=== PATIENT | male | born 1965 | race Caucasian/White ===

== ENCOUNTER 2021-04-25 12:59 | Inpatient (IN) ==
[2021-04-25] MEDS ORDERED: Isovue-370 500 ML BOTTLE IVP ONE (13:47)
[2021-04-25 14:02] LABS: INR 1.3
[2021-04-25 14:05] LABS: Activated Partial Thrombo Time 27.1 Seconds (26.0-36.0); Hematocrit 36.7 % (37.5-50.1); Hemoglobin 13.1 g/dL (12.9-16.9); Mean Corpuscular HGB Conc 35.7 g/dL (31.6-35.5); Mean Corpuscular Hemoglobin 36.4 pg (28.0-33.3); Mean Corpuscular Volume 101.9 fL (83.0-100.0); Platelet Count 250 K/mcL (140-400); Red Cell Distribution Width 11.9 % (11.5-14.5); White Blood Count 13.3 K/mcL (4.3-11.1)
[2021-04-25 14:14] LABS: Influenza A PCR Negative (Negative); Influenza B PCR Negative (Negative); Resp. Syncytial Virus PCR Negative (Negative)
[2021-04-25 14:17] LABS: SARS-CoV-2 by PCR (In House) Positive (Negative)
[2021-04-25] MEDS ORDERED: cefTRIAXone 1,000 MG in 0.9 % Sodium Chloride Mini Bag 100 ML IVPB ONE (14:24)
[2021-04-25 14:40] LABS: Lymphocytes # 0.3 K/mcL (0.6-4.6); Platelet Estimate Normal (Normal); Toxic Granulation Present (Not Present)
[2021-04-25 15:02] LABS: Alanine Aminotransferase 42 Units/L (7-52); Albumin 2.6 g/dL (3.5-5.7); Albumin/Globulin Ratio 0.7 (1.1-2.2); Alkaline Phosphatase 79 Units/L (34-104); Aspartate Amino Transferase 116 Units/L (13-39); BUN/Creatinine Ratio 40 (6-26); Blood Urea Nitrogen 62 mg/dL (6-20); Calcium 8.3 mg/dL (8.6-10.3); Carbon Dioxide 21 mEq/L (23-29); Chloride 92 mEq/L (98-107); Globulin 3.8 g/dL (2.4-3.5); Glucose 139 mg/dL (70-105); Osmolality,Calculated 288 (280-300); Potassium 3.7 mEq/L (3.5-5.1); Sodium 129 mEq/L (136-145); Total Protein 6.4 g/dL (6.4-8.9); Troponin I < 0.03 ng/mL (< 0.04); eGFR For African Americans 57 (> 60); eGFR For Non-African Americans 47 (> 60)
[2021-04-25] MEDS ORDERED: *HR* HYDROcodone/Acet 7.5/325 mg TABLET PO PRN (17:26)
[2021-04-25] MEDS ORDERED: Nicotine 2 MG GUM BC PRN (17:26)
[2021-04-25] MEDS ORDERED: Acetaminophen 325 MG TABLET PO PRN (17:27)
[2021-04-25] MEDS ORDERED: Ondansetron 4 MG/2 ML VIAL IVP PRN (17:27)
[2021-04-25] MEDS ORDERED: Naloxone 0.4 MG/ML INJ IVP PRN (17:27)
[2021-04-25] MEDS ORDERED: Melatonin 3 MG TABLET PO PRN (17:27)
[2021-04-25] MEDS ORDERED: 0.9 % Sodium Chloride 1,000 ML IVC SCH (17:30)
[2021-04-25] MEDS ORDERED: 0.9 % Sodium Chloride 1,000 ML IVC ONE (18:00)
[2021-04-25] MEDS: Dexamethasone Sodium Phos/PF 10 MG/ML VIAL IVP SCH (18:56)
[2021-04-25] MEDS: Nicotine 21 MG PATCH.TD24 TD SCH (18:56)
[2021-04-25] MEDS: Gabapentin 300 MG CAPSULE PO SCH (22:04)
[2021-04-26 05:01] LABS: Acinetobacter baumannii by PCR Not Detected (Not Detect); Candida albicans by PCR Not Detected (Not Detect); Candida glabrata by PCR Not Detected (Not Detect); Candida krusei by PCR Not Detected (Not Detect); Candida parapsilosis by PCR Not Detected (Not Detect); Candida tropicalis by PCR Not Detected (Not Detect); Enterobacter cloacae Cmplx PCR Not Detected (Not Detect); Enterobacteriaceae by PCR Not Detected (Not Detect); Enterococcus by PCR Not Detected (Not Detect); Escherichia coli by PCR Not Detected (Not Detect); Klebsiella oxytoca by PCR Not Detected (Not Detect); Klebsiella pneumoniae by PCR Not Detected (Not Detect); Proteus by PCR Not Detected (Not Detect); Pseudomonas aeruginosa by PCR Not Detected (Not Detect); Serratia marcescens by PCR Not Detected (Not Detect); Staphylococcus aureus by PCR Not Detected (Not Detect); Staphylococcus by PCR Not Detected (Not Detect); Streptococcus agalactiae(B)PCR Not Detected (Not Detect); Streptococcus by PCR Not Detected (Not Detect); Streptococcus pneumoniae PCR DETECTED (Not Detect); Streptococcus pyogenes (A) PCR Not Detected (Not Detect)
[2021-04-26 05:48] LABS: Hematocrit 34.4 % (37.5-50.1); Mean Corpuscular HGB Conc 34.9 g/dL (31.6-35.5); Mean Corpuscular Hemoglobin 35.9 pg (28.0-33.3); Mean Platelet Volume 10.8 fL (9.4-12.4); Platelet Count 241 K/mcL (140-400); Red Blood Count 3.34 M/mcL (4.19-5.50); Red Cell Distribution Width 12.3 % (11.5-14.5); White Blood Count 14.6 K/mcL (4.3-11.1)
[2021-04-26 05:59] LABS: BUN/Creatinine Ratio 53 (6-26); Blood Urea Nitrogen 71 mg/dL (6-20); Calcium 8.4 mg/dL (8.6-10.3); Carbon Dioxide 23 mEq/L (23-29); Chloride 97 mEq/L (98-107); Glucose 125 mg/dL (70-105); Magnesium 2.6 mg/dL (1.6-2.6); Osmolality,Calculated 296 (280-300); Phosphorous 4.9 mg/dL (2.7-4.5); Potassium 4.5 mEq/L (3.5-5.1); Sodium 132 mEq/L (136-145); eGFR For African Americans > 60 (> 60); eGFR For Non-African Americans 55 (> 60)
[2021-04-26] MEDS: *HR* Enoxaparin 40 MG/0.4 ML SYRINGE SQ SCH (08:20)
[2021-04-26] MEDS: Dexamethasone Sodium Phos/PF 10 MG/ML VIAL IVP SCH (08:20)
[2021-04-26] MEDS: Nicotine 21 MG PATCH.TD24 TD SCH (08:20)
[2021-04-26] MEDS: Aspirin 81 MG TAB.CHEW PO SCH (08:21)
[2021-04-26] MEDS: Gabapentin 300 MG CAPSULE PO SCH ×3 (08:21→20:21)
[2021-04-26] MEDS ORDERED: cefTRIAXone 1,000 MG in Water for inj. (sterile) 10 ML IVP SCH (09:00)
[2021-04-26] MEDS ORDERED: cefTRIAXone 1,000 MG in Water for inj. (sterile) 10 ML IVP ONE (13:05)
[2021-04-26] MEDS ORDERED: 0.9 % Sodium Chloride 500 ML IVC ONE (13:06)
[2021-04-26] MEDS ORDERED: 0.9 % Sodium Chloride 1,000 ML IVC ONE (13:09)
[2021-04-27] MEDS: *HR* Enoxaparin 40 MG/0.4 ML SYRINGE SQ SCH (05:06)
[2021-04-27 06:08] LABS: Hematocrit 32.9 % (37.5-50.1); Hemoglobin 11.3 g/dL (12.9-16.9); Mean Corpuscular HGB Conc 34.3 g/dL (31.6-35.5); Mean Corpuscular Hemoglobin 35.8 pg (28.0-33.3); Mean Corpuscular Volume 104.1 fL (83.0-100.0); Mean Platelet Volume 10.8 fL (9.4-12.4); Platelet Count 270 K/mcL (140-400); Red Blood Count 3.16 M/mcL (4.19-5.50); Red Cell Distribution Width 12.7 % (11.5-14.5); White Blood Count 14.8 K/mcL (4.3-11.1)
[2021-04-27 06:21] LABS: BUN/Creatinine Ratio 70 (6-26); Blood Urea Nitrogen 80 mg/dL (6-20); Calcium 8.2 mg/dL (8.6-10.3); Carbon Dioxide 23 mEq/L (23-29); Chloride 105 mEq/L (98-107); Glucose 115 mg/dL (70-105); Magnesium 2.8 mg/dL (1.6-2.6); Osmolality,Calculated 309 (280-300); Potassium 4.9 mEq/L (3.5-5.1); Sodium 137 mEq/L (136-145); eGFR For African Americans > 60 (> 60); eGFR For Non-African Americans > 60 (> 60)
[2021-04-27] MEDS: Nicotine 21 MG PATCH.TD24 TD SCH (08:12)
[2021-04-27] MEDS: Aspirin 81 MG TAB.CHEW PO SCH (08:13)
[2021-04-27] MEDS: Gabapentin 300 MG CAPSULE PO SCH ×3 (08:13→21:40)
[2021-04-27] MEDS: cefTRIAXone 2,000 MG in 0.9 % Sodium Chloride Mini Bag 100 ML IVPB SCH (08:14)
[2021-04-28 03:03] VITALS: PULSE 91; TEMP 97.9
[2021-04-28 05:59] LABS: Hematocrit 36.4 % (37.5-50.1); Mean Corpuscular Hemoglobin 35.4 pg (28.0-33.3); Mean Corpuscular Volume 107.4 fL (83.0-100.0); Mean Platelet Volume 10.2 fL (9.4-12.4); Platelet Count 285 K/mcL (140-400); Red Blood Count 3.39 M/mcL (4.19-5.50); Red Cell Distribution Width 12.9 % (11.5-14.5); White Blood Count 8.4 K/mcL (4.3-11.1)
[2021-04-28] MEDS: *HR* Enoxaparin 40 MG/0.4 ML SYRINGE SQ SCH (06:10)
[2021-04-28 06:13] LABS: BUN/Creatinine Ratio 60 (6-26); Blood Urea Nitrogen 70 mg/dL (6-20); Calcium 8.2 mg/dL (8.6-10.3); Carbon Dioxide 27 mEq/L (23-29); Chloride 106 mEq/L (98-107); Glucose 78 mg/dL (70-105); Magnesium 2.3 mg/dL (1.6-2.6); Osmolality,Calculated 309 (280-300); Phosphorous 4.5 mg/dL (2.7-4.5); Potassium 4.1 mEq/L (3.5-5.1); Sodium 140 mEq/L (136-145); eGFR For African Americans > 60 (> 60); eGFR For Non-African Americans > 60 (> 60)
[2021-04-28 07:13] VITALS: BP 177/86; O2SAT 96
[2021-04-28] MEDS: Aspirin 81 MG TAB.CHEW PO SCH (08:23)
[2021-04-28] MEDS: Gabapentin 300 MG CAPSULE PO SCH (08:23)
[2021-04-28] MEDS: cefTRIAXone 2,000 MG in 0.9 % Sodium Chloride Mini Bag 100 ML IVPB SCH (08:24)
[2021-04-28] MEDS: Nicotine 21 MG PATCH.TD24 TD SCH (08:24)
== END 2021-04-28 12:11 | disposition home or self-care (01) | DRG 720 ==
LOC: 3NENU 12:59 → EMEROOARM 12:59 → SUATTDRO 18:16 → 3NENU 18:39
PROVIDERS: ADMIT Internal Medicine; ATTEND Internal Medicine

== ENCOUNTER 2021-04-28 19:23 | Observation (INO) ==
[2021-04-28 20:20] LABS: Basophils % 0.5 %; Hematocrit 36.9 % (37.5-50.1); Hemoglobin 12.8 g/dL (12.9-16.9); Immature Granulocytes % 1.9 % (0-4); Lymphocytes # 0.7 K/mcL (0.6-4.6); Lymphocytes % 10.6 %; Mean Corpuscular HGB Conc 34.7 g/dL (31.6-35.5); Mean Corpuscular Hemoglobin 36.3 pg (28.0-33.3); Mean Corpuscular Volume 104.5 fL (83.0-100.0); Mean Platelet Volume 10.2 fL (9.4-12.4); Monocytes # 0.2 K/mcL (0.0-1.3); Monocytes % 2.5 %; Neutrophils # 5.4 K/mcL (1.6-8.9); Platelet Count 298 K/mcL (140-400); Red Blood Count 3.53 M/mcL (4.19-5.50); Red Cell Distribution Width 12.9 % (11.5-14.5); Segmented Neutrophils % 84.5 %; White Blood Count 6.4 K/mcL (4.3-11.1)
[2021-04-28 20:31] LABS: INR 1.2; Prothrombin Time 13.4 Seconds (9.4-12.1)
[2021-04-28 20:33] LABS: Activated Partial Thrombo Time 35.2 Seconds (26.0-36.0)
[2021-04-28 20:39] LABS: Alanine Aminotransferase 62 Units/L (7-52); Albumin 2.6 g/dL (3.5-5.7); Albumin/Globulin Ratio 0.7 (1.1-2.2); Alkaline Phosphatase 139 Units/L (34-104); Aspartate Amino Transferase 103 Units/L (13-39); BUN/Creatinine Ratio 55 (6-26); Bilirubin,Direct 0.2 mg/dL (0.0-0.2); Bilirubin,Indirect 0.2 mg/dL (0.0-1.0); Bilirubin,Total 0.4 mg/dL (0.3-1.0); Blood Urea Nitrogen 44 mg/dL (6-20); Calcium 8.2 mg/dL (8.6-10.3); Carbon Dioxide 26 mEq/L (23-29); Chloride 101 mEq/L (98-107); Globulin 3.8 g/dL (2.4-3.5); Glucose 114 mg/dL (70-105); Magnesium 1.7 mg/dL (1.6-2.6); Osmolality,Calculated 294 (280-300); Phosphorous 4.2 mg/dL (2.7-4.5); Potassium 3.7 mEq/L (3.5-5.1); Sodium 136 mEq/L (136-145); Total Protein 6.4 g/dL (6.4-8.9); Troponin I 0.03 ng/mL (< 0.04); eGFR For African Americans > 60 (> 60); eGFR For Non-African Americans > 60 (> 60)
[2021-04-28 20:56] LABS: Large Platelets Present (Not Present)
[2021-04-28] MEDS ORDERED: 0.9 % Sodium Chloride 1,000 ML IV ONE (21:44)
[2021-04-29 01:08] LABS: Bilirubin,Urine Negative (Negative); Blood,Urine Negative (Negative); Clarity,Urine Clear (Clear); Color,Urine Yellow (Yellow); Glucose,Urine (UA) Normal (Normal); Ketones,Urine Negative (Negative); Leukocyte Esterase,Urine Negative (Negative); Mucus,Urine Few per lpf (None-Few); Nitrite,Urine Negative (Negative); Protein,Urine 30 mg/dL (Neg-Trace); RBC,Urine 0-3 per hpf (0-3); Specific Gravity,Urine 1.025 (1.010-1.025); Urobilinogen,Urine Normal (Normal); WBC,Urine 0-3 per hpf (0-3)
[2021-04-29] MEDS ORDERED: Isovue-370 500 ML BOTTLE IVP ONE (02:36)
[2021-04-29] MEDS ORDERED: Acetaminophen 325 MG TABLET PO PRN (05:36)
[2021-04-29] MEDS ORDERED: Naloxone 0.4 MG/ML INJ IVP PRN (05:36)
[2021-04-29] MEDS ORDERED: Ondansetron 4 MG/2 ML VIAL IVP PRN (05:36)
[2021-04-29] MEDS ORDERED: Ipratropium/Albuterol Neb 3 ML IH PRN (05:39)
[2021-04-29] MEDS ORDERED: *HR* Heparin 5,000 UNIT/ML VIAL SQ SCH (06:00)
[2021-04-29] MEDS ORDERED: Azithromycin 500 MG in D5% in Water 250 ML IVPB SCH (06:00)
[2021-04-29 08:24] LABS: Hemoglobin 11.9 g/dL (12.9-16.9); Red Cell Distribution Width 13.2 % (11.5-14.5)
[2021-04-29 08:26] LABS: Basophils # 0.1 K/mcL (0.0-0.2); Basophils % 1.1 %; Eosinophils % 0.7 %; Hematocrit 35.8 % (37.5-50.1); Immature Granulocytes % 3.9 % (0-4); Immature Platelets 3.6 % (1.1-6.1); Lymphocytes # 0.5 K/mcL (0.6-4.6); Lymphocytes % 11.8 %; Mean Corpuscular HGB Conc 33.2 g/dL (31.6-35.5); Mean Corpuscular Hemoglobin 35.6 pg (28.0-33.3); Mean Corpuscular Volume 107.2 fL (83.0-100.0); Mean Platelet Volume 10.3 fL (9.4-12.4); Monocytes # 0.1 K/mcL (0.0-1.3); Monocytes % 3.2 %; Neutrophils # 3.5 K/mcL (1.6-8.9); Nucleated Red Blood Cells 0.5 /100 WBC (0); Platelet Count 228 K/mcL (140-400); Red Blood Count 3.34 M/mcL (4.19-5.50); Segmented Neutrophils % 79.3 %; White Blood Count 4.4 K/mcL (4.3-11.1)
[2021-04-29] MEDS ORDERED: cefTRIAXone 1,000 MG in Water for inj. (sterile) 10 ML IVP SCH (09:00)
[2021-04-29] MEDS: Cefdinir 300 MG CAPSULE PO SCH ×2 (12:25→20:04)
[2021-04-29] MEDS ORDERED: Nicotine 2 MG GUM BC PRN (15:48)
[2021-04-29] MEDS: Melatonin 3 MG TABLET PO PRN (20:04)
[2021-04-29 22:44] LABS: Sodium 139 mEq/L (136-145)
[2021-04-29 22:45] LABS: BUN/Creatinine Ratio 45 (6-26); Blood Urea Nitrogen 28 mg/dL (6-20); Carbon Dioxide 28 mEq/L (23-29); Chloride 106 mEq/L (98-107); Glucose 117 mg/dL (70-105); Osmolality,Calculated 295 (280-300); Potassium 4.7 mEq/L (3.5-5.1); eGFR For African Americans > 60 (> 60); eGFR For Non-African Americans > 60 (> 60)
[2021-04-30] MEDS: *HR* Enoxaparin 40 MG/0.4 ML SYRINGE SQ SCH (05:32)
[2021-04-30] MEDS: amLODIPine 5 MG TABLET PO SCH (08:15)
[2021-04-30] MEDS: atenoloL 50 MG TABLET PO SCH (08:16)
[2021-04-30] MEDS: Aspirin 81 MG TAB.CHEW PO SCH (08:16)
[2021-04-30] MEDS: Nicotine 21 MG PATCH.TD24 TD SCH (08:16)
[2021-04-30] MEDS: lisinopriL 20 MG TABLET PO SCH (08:16)
[2021-04-30] MEDS: Cefdinir 300 MG CAPSULE PO SCH ×2 (08:16→19:54)
[2021-05-01 02:53] LABS: Basophils % 0.2 %; Eosinophils % 0.2 %; Hematocrit 34.5 % (37.5-50.1); Hemoglobin 11.6 g/dL (12.9-16.9); Immature Granulocytes % 1.4 % (0-4); Lymphocytes # 0.7 K/mcL (0.6-4.6); Lymphocytes % 16.4 %; Mean Corpuscular HGB Conc 33.6 g/dL (31.6-35.5); Mean Corpuscular Volume 107.1 fL (83.0-100.0); Mean Platelet Volume 10.3 fL (9.4-12.4); Monocytes # 0.1 K/mcL (0.0-1.3); Monocytes % 3.3 %; Neutrophils # 3.4 K/mcL (1.6-8.9); Platelet Count 239 K/mcL (140-400); Red Blood Count 3.22 M/mcL (4.19-5.50); Red Cell Distribution Width 12.4 % (11.5-14.5); Segmented Neutrophils % 78.5 %; White Blood Count 4.3 K/mcL (4.3-11.1)
[2021-05-01 03:13] LABS: Alanine Aminotransferase 32 Units/L (7-52); Albumin 2.1 g/dL (3.5-5.7); Albumin/Globulin Ratio 0.6 (1.1-2.2); Alkaline Phosphatase 71 Units/L (34-104); Aspartate Amino Transferase 45 Units/L (13-39); BUN/Creatinine Ratio 31 (6-26); Bilirubin,Total 0.4 mg/dL (0.3-1.0); Blood Urea Nitrogen 20 mg/dL (6-20); C-Reactive Protein 23 mg/L (Less than 10); Calcium 7.6 mg/dL (8.6-10.3); Carbon Dioxide 27 mEq/L (23-29); Chloride 103 mEq/L (98-107); Globulin 3.7 g/dL (2.4-3.5); Glucose 76 mg/dL (70-105); Osmolality,Calculated 283 (280-300); Potassium 3.9 mEq/L (3.5-5.1); Sodium 136 mEq/L (136-145); Total Protein 5.8 g/dL (6.4-8.9); eGFR For African Americans > 60 (> 60); eGFR For Non-African Americans > 60 (> 60)
[2021-05-01] MEDS: *HR* Enoxaparin 40 MG/0.4 ML SYRINGE SQ SCH (04:26)
[2021-05-01] MEDS: Aspirin 81 MG TAB.CHEW PO SCH (08:54)
[2021-05-01] MEDS: lisinopriL 20 MG TABLET PO SCH (08:55)
[2021-05-01] MEDS: atenoloL 50 MG TABLET PO SCH (08:55)
[2021-05-01] MEDS: Nicotine 21 MG PATCH.TD24 TD SCH (08:55)
[2021-05-01] MEDS: Cefdinir 300 MG CAPSULE PO SCH ×2 (08:55→23:12)
[2021-05-01] MEDS: amLODIPine 5 MG TABLET PO SCH (08:55)
[2021-05-02] MEDS: *HR* Enoxaparin 40 MG/0.4 ML SYRINGE SQ SCH (06:01)
[2021-05-02] MEDS: Nicotine 21 MG PATCH.TD24 TD SCH (10:56)
[2021-05-02] MEDS: amLODIPine 5 MG TABLET PO SCH (10:57)
[2021-05-02] MEDS: atenoloL 50 MG TABLET PO SCH (10:57)
[2021-05-02] MEDS: Aspirin 81 MG TAB.CHEW PO SCH (10:57)
[2021-05-02] MEDS: lisinopriL 20 MG TABLET PO SCH (10:57)
[2021-05-02] MEDS: Cefdinir 300 MG CAPSULE PO SCH (20:59)
[2021-05-02] MEDS: Melatonin 3 MG TABLET PO PRN (21:46)
[2021-05-03] MEDS: Acetaminophen 325 MG TABLET PO SCH ×4 (04:49→16:55)
[2021-05-03] MEDS: *HR* Enoxaparin 40 MG/0.4 ML SYRINGE SQ SCH (05:08)
[2021-05-03 06:58] LABS: Basophils % 0.2 %; Eosinophils % 0.5 %; Hematocrit 34.6 % (37.5-50.1); Hemoglobin 11.6 g/dL (12.9-16.9); Immature Granulocytes % 0.5 % (0-4); Lymphocytes # 1.1 K/mcL (0.6-4.6); Lymphocytes % 18.7 %; Mean Corpuscular HGB Conc 33.5 g/dL (31.6-35.5); Mean Corpuscular Volume 107.5 fL (83.0-100.0); Mean Platelet Volume 10.8 fL (9.4-12.4); Monocytes # 0.2 K/mcL (0.0-1.3); Monocytes % 3.7 %; Neutrophils # 4.3 K/mcL (1.6-8.9); Platelet Count 236 K/mcL (140-400); Red Blood Count 3.22 M/mcL (4.19-5.50); Red Cell Distribution Width 12.6 % (11.5-14.5); Segmented Neutrophils % 76.4 %; White Blood Count 5.7 K/mcL (4.3-11.1)
[2021-05-03 07:13] LABS: BUN/Creatinine Ratio 30 (6-26); Blood Urea Nitrogen 20 mg/dL (6-20); Calcium 7.8 mg/dL (8.6-10.3); Carbon Dioxide 28 mEq/L (23-29); Chloride 104 mEq/L (98-107); Glucose 105 mg/dL (70-105); Osmolality,Calculated 287 (280-300); Potassium 3.7 mEq/L (3.5-5.1); Sodium 137 mEq/L (136-145); eGFR For African Americans > 60 (> 60); eGFR For Non-African Americans > 60 (> 60)
[2021-05-03] MEDS: Cefdinir 300 MG CAPSULE PO SCH ×3 (07:36→20:35)
[2021-05-03] MEDS: Nicotine 21 MG PATCH.TD24 TD SCH (08:29)
[2021-05-03] MEDS: atenoloL 50 MG TABLET PO SCH (08:29)
[2021-05-03] MEDS: Aspirin 81 MG TAB.CHEW PO SCH (08:29)
[2021-05-03] MEDS: amLODIPine 5 MG TABLET PO SCH (08:29)
[2021-05-03] MEDS: lisinopriL 20 MG TABLET PO SCH (08:29)
[2021-05-04] MEDS: Melatonin 3 MG TABLET PO PRN ×2 (00:28→18:52)
[2021-05-04] MEDS: Acetaminophen 325 MG TABLET PO SCH ×4 (00:28→18:04)
[2021-05-04] MEDS: *HR* Enoxaparin 40 MG/0.4 ML SYRINGE SQ SCH (05:13)
[2021-05-04] MEDS: atenoloL 50 MG TABLET PO SCH (08:25)
[2021-05-04] MEDS: Aspirin 81 MG TAB.CHEW PO SCH (08:25)
[2021-05-04] MEDS: amLODIPine 5 MG TABLET PO SCH (08:25)
[2021-05-04] MEDS: Cefdinir 300 MG CAPSULE PO SCH ×2 (08:25→20:17)
[2021-05-04] MEDS: Nicotine 21 MG PATCH.TD24 TD SCH (08:26)
[2021-05-04] MEDS: lisinopriL 20 MG TABLET PO SCH (08:26)
[2021-05-05] MEDS: *HR* Enoxaparin 40 MG/0.4 ML SYRINGE SQ SCH (05:33)
[2021-05-05] MEDS: Acetaminophen 325 MG TABLET PO SCH ×3 (05:33→12:00)
[2021-05-05] MEDS: Aspirin 81 MG TAB.CHEW PO SCH (09:09)
[2021-05-05] MEDS: Nicotine 21 MG PATCH.TD24 TD SCH (09:09)
[2021-05-05] MEDS: Cefdinir 300 MG CAPSULE PO SCH (09:09)
[2021-05-05] MEDS: amLODIPine 5 MG TABLET PO SCH (09:09)
[2021-05-05] MEDS: lisinopriL 20 MG TABLET PO SCH (09:09)
[2021-05-05] MEDS: atenoloL 50 MG TABLET PO SCH (09:09)
[2021-05-05 15:27] VITALS: BP 124/74; PULSE 83; TEMP 100.8; O2SAT 90
== END 2021-05-05 17:39 ==
LOC: CDU 19:23 → EMEROOARM 19:23 → SUATTDRO 04-29 07:34 → CDU 04-29 10:12 → 3NENU 04-30 19:30
PROVIDERS: ADMIT Family Medicine; ATTEND Family Medicine